=== PATIENT | female | born 1950 | race Caucasian/White ===

== ENCOUNTER → 2017-01-05 | Outpatient (CLI) | payer MEDICARE, OTHER ==
--- NOTE | 2016-12-02 08:40 | MH ---
cc: [facility], [facility] DATE OF ADMISSION: 01/05/2017 ADMISSION DIAGNOSIS Narrow anterior chamber angles with potential angle closure. HISTORY OF PRESENT ILLNESS This 66-year-old white female is coming through [facility] for the purpose of a laser peripheral iridectomy of the left eye. She was found to have narrow anterior chamber angles with potential angle closure on examination and has elected to have the laser peripheral iridectomy beginning with the left eye at this time. PAST MEDICAL HISTORY The patient has a history of hypertension, diabetes, acid reflux, sleep apnea and kidney stones. PAST SURGICAL HISTORY Surgical history includes carpal tunnel, heart stent, lithotripsy and a second heart stent. MEDICATIONS Daily medications include: 1. Hydrochlorothiazide. 2. Amlodipine. 3. Losartan. 4. Carvedilol. 5. Omeprazole. 6. Metformin. 7. Atorvastatin. 8. Triplex. 9. Baby aspirin. 10. Plavix. 11. Multivitamins. 12. Fish oil. 13. Ibuprofen p.r.n. 14. Nitro p.r.n. 15. Bydureon injection weekly. ALLERGIES SHE IS ALLERGIC TO LISINOPRIL. FAMILY HISTORY Positive for grandmothers and mother with cataracts. SOCIAL HISTORY Noncontributory. REVIEW OF SYSTEMS Noncontributory. OCULAR EXAMINATION The patient's visual acuity with correction is 20/20 in the right eye and 20/20 -1 in the left. Visual chavez are full to confrontation testing. Extraocular muscle exam reveals full versions with orthophoria at distance and near. Pupils are 3 mm, equal, round and reactive to light without afferent defect. Anterior segment examination reveals very narrow anterior chamber angles with potential angle closure on gonioscopy. Intraocular pressure is 18 in the right eye and 23 in the left by applanation tonometry. Dilated fundus exam reveals sharp disks with cup-to-disk ratio 0.55 in the right eye and 0.6 in the left. The macula is clear bilaterally. A posterior vitreous detachment is present bilaterally with floaters. Choroidal nevi are present bilaterally. IMPRESSION 1. Narrow anterior chamber angles with potential angle closure. 2. Glaucoma suspect, low risk. 3. Posterior vitreous detachment, both eyes. 4. Choroidal nevi, both eyes. PLAN Laser peripheral iridectomy of the left eye through [facility]. MD AIDEN Garcia /8:04 AM /8:35 AM
[~2017-01-05] MED LIST: AMLO5TAB22 PO; ASPI81TA82 PO; ATOR20TA42 PO; BALANCED SALT SOLN OPHT IRRIG 15 ML BTL ONE; CHOL1CAP PO; CORE25TA PO; COZA50TA PO; EXEN10PE SQ; FISH1000 PO; HYDR-2768 PO; MOTR200T PO; NITR0.4S SL; OMEP20TA PO; PILOCARPINE HCL 2% OPHT SOLN 15 ML BTL ONE; PLAV75TA PO; PROPARACAINE HCL 0.5% OPHT SOLN 15 ML BTL ONE; TAB-TAB PO; prednisoLONE ACETATE 1% OPHT SUSP 5 ML BTL ONE
--- NOTE | 2017-01-05 13:23 | MP ---
cc: [facility] DATE OF SURGERY 01/05/2017 PREOPERATIVE DIAGNOSIS Narrow anterior chamber angle, left eye. POSTOPERATIVE DIAGNOSIS Narrow anterior chamber angle, left eye. OPERATION Laser peripheral iridectomy, left eye. ANESTHESIA Topical COMPLICATIONS None INDICATIONS FOR PROCEDURE See History and Physical previously dictated. PROCEDURE The patient arrived at [facility]. Blood pressure was 137/68, pulse 65, respirations 18. A drop of Alphagan P and 2% Pilocarpine were instilled in the left eye. A drop of Ophthaine was instilled in the left eye and a laser iridectomy lens was placed on the anterior surface of the left cornea. Peripheral iridectomy was carried out utilizing the following procedure: Argon laser was first utilized forming a crater in the iris. 12 exposures of 400 milliwatts were used with a spot size of 200 microns for 0.2 seconds. Then the Argon laser is 58 exposures of 900 milliwatts were used with the spot size of 50 microns 0.1 second exposure. Following this, YAG laser was utilized to complete the iridectomy. 2 exposures of 6.3 millijoules were utilized by the YAG laser to complete the iridectomy. An adequate opening was seen at this time. The iridectomy lens was removed and the eye was irrigated. A drop of Alphagan P was instilled. The patient was given a prescription for Pred Forte to be utilized four times a day, and has an appointment for follow-up on the first postoperative day in my office. The patient left the [facility] in satisfactory condition. MD RAMAKRISHNA Garcia/ANTHONY /11:46 AM /1:24 PM .10
== END ==
LOC: PHSDC 10:02
PROVIDERS: ATTEND Ophthalmology
DX: H40.20X0 Unspecified primary angle-closure glaucoma, stage unspecified (principal); H43.813 Vitreous degeneration, bilateral; H43.393 Other vitreous opacities, bilateral; D31.31 Benign neoplasm of right choroid; D31.32 Benign neoplasm of left choroid; I10 Essential (primary) hypertension; E11.9 Type 2 diabetes mellitus without complications; G47.30 Sleep apnea, unspecified; K21.9 Gastro-esophageal reflux disease without esophagitis; Z79.84 Long term (current) use of oral hypoglycemic drugs; Z95.5 Presence of coronary angioplasty implant and graft; Z87.442 Personal history of urinary calculi

== ENCOUNTER → 2017-03-23 | Outpatient (CLI) | payer MEDICARE, OTHER ==
--- NOTE | 2017-03-19 14:42 | MH ---
cc: [facility] DATE OF ADMISSION 03/23/2017 ADMISSION DIAGNOSIS Narrow anterior chamber angle right eye. HISTORY OF PRESENT ILLNESS This 66-year-old white female is coming through [facility] for the purpose of a laser peripheral iridectomy of the right eye. She was found to have narrow anterior chamber angles with potential angle closure and has undergone a laser peripheral iridectomy in the left eye in December 2016 and done well and is now coming through for the laser peripheral iridectomy on the right eye. PAST MEDICAL HISTORY The patient has a history of: 1. Hypertension 2. Diabetes 3. Acid reflux 4. Sleep apnea 5. Kidney stones PAST SURGICAL HISTORY Includes: 1. Lithotripsy 2. Heart stent 3. The above-mentioned laser peripheral iridectomy in the left eye in December of 2016 MEDICATIONS Daily medications include: 1. Hydrochlorothiazide 2. Amlodipine 3. Losartan 4. Carvedilol 5. Omeprazole 6. Metformin 7. Atorvastatin 8. Triplex DR 9. Baby aspirin 2 10. Plavix 11. Multivitamins 12. Fish oil 13. Ibuprofen p.r.n. 14. Nitro p.r.n. 15. Bydureon injection weekly ALLERGIES She is allergic to LISINOPRIL SOCIAL HISTORY Noncontributory FAMILY HISTORY Positive for a grandmother and mother with cataract. REVIEW OF SYSTEMS Noncontributory PHYSICAL EXAM On ocular exam, the patient's visual acuity with correction is 20/20 in each eye. Visual chavez are full to confrontation testing. Extraocular muscle exam reveals full versions with orthophoria at distance and near. Pupils are 3 mm equal, round, and reactive to light without afferent defect. Anterior segment examination reveals a narrow anterior chamber angle with potential angle closure in the right eye and a laser peripheral iridectomy that is patent in the left eye. Intraocular pressure is 18 in the right eye and 29 in the left. Dilated fundus exam revealed sharp disk with cup-to-disk ratio 0.55 in the right eye and 0.6 in the left. The macula is clear bilaterally. Posterior vitreous detachment is present bilaterally. There are choroidal nevi present in both eyes and vitreous floaters in both eyes. IMPRESSION 1. Narrow anterior chamber angle with potential angle closure right eye. 2. Status post laser peripheral iridectomy left eye for narrow anterior chamber angle. 3. Posterior vitreous detachment both eyes 4. Vitreous floaters both eyes 5. Choroidal nevi both eyes PLAN The plan is laser peripheral iridectomy of the right eye through [facility]. MD RAMAKRISHNA Garcia/ANTHONY /12:09 PM /2:40 PM
--- NOTE | 2017-03-24 12:45 | MP ---
cc: [facility] DATE OF SURGERY: 03/24/2017 PREOPERATIVE DIAGNOSIS: Narrow anterior chamber angle, right eye. POSTOPERATIVE DIAGNOSIS: Narrow anterior chamber angle, right eye. OPERATION: Laser peripheral iridectomy, right eye. ANESTHESIA: Topical. COMPLICATIONS: None. INDICATIONS FOR PROCEDURE: See History and Physical previously dictated. PROCEDURE: The patient arrived at [facility]. Blood pressure was 132/73, pulse 69, respirations 18. A drop of Alphagan P and 2% Pilocarpine were instilled in the right eye. A drop of Ophthaine was instilled in the right eye and a laser iridectomy lens was placed on the anterior surface of the right cornea. Peripheral iridectomy was carried out utilizing the following procedure: Argon laser was first utilized forming a crater in the iris. 12 exposures of 400 milliwatts were used with a spot size of 200 microns for 0.2 seconds. Then 46 exposures of 950 milliwatts were used with the spot size of 50 microns, 0.1 seconds exposure time. Following this, YAG laser was utilized to complete the iridectomy. 7 exposures of 6.4 millijoules were utilized by the YAG laser to complete the iridectomy. An adequate opening was seen at this time. The iridectomy lens was removed and the eye was irrigated. A drop of Alphagan P was instilled. The patient was given a prescription for Pred Forte to be utilized four times a day, and has an appointment for follow-up on the first postoperative day in my office. The patient left the [facility] in satisfactory condition. MD RAMAKRISHNA Garcia/milana /12:32 PM /12:36 PM .10
== END ==
LOC: PHSDC 10:56
PROVIDERS: ATTEND Ophthalmology
DX: H40.031 Anatomical narrow angle, right eye (principal); H43.393 Other vitreous opacities, bilateral; D31.32 Benign neoplasm of left choroid; D31.31 Benign neoplasm of right choroid; H43.813 Vitreous degeneration, bilateral; I10 Essential (primary) hypertension; E11.9 Type 2 diabetes mellitus without complications; G47.30 Sleep apnea, unspecified; K21.9 Gastro-esophageal reflux disease without esophagitis; N20.0 Calculus of kidney; Z79.84 Long term (current) use of oral hypoglycemic drugs

== ENCOUNTER 2017-09-27 00:10 | Inpatient (IN) ==
[2017-09-27] MEDS ORDERED: dilTIAZem Inj 125 MG in Sodium Chlor 0.9% Inj 100 ML IV.CONT PRN (00:24)
[2017-09-27 00:37] LABS: Baso # (Auto) 0.1 th/mm3 (0.0-0.2); Baso % (Auto) 0.8 % (0.0-2.0); Eos # (Auto) 0.1 th/mm3 (0.0-0.4); Eos % (Auto) 1.4 % (0.0-4.0); Hematocrit 43.4 % (35.0-46.0); Lymph # (Auto) 2.3 th/mm3 (1.0-4.8); Lymph % (Auto) 27.4 % (9.0-44.0); Mean Corpuscular HGB Conc 34.5 % (32.0-36.0); Mean Corpuscular Hemoglobin 30.7 pg (27.0-34.0); Mean Corpuscular Volume 89.1 fL (80.0-100.0); Mean Platelet Volume 10.6 fL (7.0-11.0); Mono # (Auto) 0.4 th/mm3 (0.0-0.9); Mono % (Auto) 4.8 % (0.0-8.0); Neut # (Auto) 5.4 th/mm3 (1.8-7.7); Neut % (Auto) 65.6 % (16.0-70.0); Platelet Count 199 th/mm3 (150-450); Red Blood Count 4.88 mil/mm3 (4.00-5.30); Red Cell Distribution Width 13.4 % (11.6-17.2); White Blood Count 8.3 th/mm3 (4.0-11.0)
--- NOTE | 2017-09-27 00:49 | ED ---
HPI General Chief complaint: Arrhythmia / Palpitations Stated complaint: Heart racing,pulse irregular Time Seen by Provider: 09/27/17 00:24 Source: patient Mode of arrival: ambulatory Limitations: no limitations History of Present Illness HPI narrative: Is a 67-year-old woman who presents emergency department complaining that she felt like her heart was beating kind of funny tonight, with palpitations, and irregular heartbeat. States symptoms started just a little bit before she came to the emergency department. Over the past couple days she has felt a little tired, but a headache, nothing too out of the ordinary. No chest pain. She is a little bit of shortness of breath since the symptoms started. She has a history of CAD with stents, she follows a Dr. Damian. She also has diabetes hypertension hyperlipidemia and sleep apnea. She does not really uses CPAP anymore, has not for couple years. She has never had any kind of abnormal heart rhythm or A. fib. She takes all her medications regularly. No other complaints. Related Data Home Medications Medication Instructions Recorded Confirmed amlodipine [Norvasc] 10 mg PO DAILY 09/27/17 09/27/17 aspirin [Aspir-81] 81 mg PO DAILY 09/27/17 09/27/17 atorvastatin [Lipitor] 40 mg PO DAILY 09/27/17 09/27/17 exenatide microspheres [Bydureon] 2 mg SUB-Q Q7D 09/27/17 09/27/17 fenofibric acid (choline) 45 mg PO DAILY 09/27/17 09/27/17 furosemide [Lasix] 20 mg PO DAILY 09/27/17 09/27/17 losartan 50 mg PO DAILY 09/27/17 09/27/17 meloxicam 15 mg PO DAILY 09/27/17 09/27/17 multivit-folic [id number] C 09/27/17 nitroglycerin [Nitrostat] 0.4 mg SUBLINGUAL Q5-15M PRN 09/27/17 09/27/17 omega-3 fatty acids [Fish Oil 2,000 mg PO DAILY 09/27/17 09/27/17 Concentrate] omeprazole 40 mg PO DAILY 09/27/17 09/27/17 Previous Rx's Medication Instructions Recorded apixaban [Eliquis] 5 mg PO BID #60 tab 09/28/17 carvedilol [Coreg] 12.5 mg PO BID #60 tab 09/28/17 diltiazem HCl 120 mg PO DAILY #30 cap 09/28/17 Allergies Allergy/AdvReac Type Severity Reaction Status Date / Time lisinopril Allergy Severe Anaphylaxis Verified 09/27/17 00:13 Review of Systems ROS: all other systems reviewed are negative [facility] Medical History Medical History CAD (coronary artery disease) (Chronic) History of heart artery stent (Chronic) History of high cholesterol (Chronic) History of hypertension (Chronic) Hx of chronic arthritis (Chronic) Hx of type 2 diabetes mellitus (Chronic) ERMELINDA (obstructive sleep apnea) (Chronic) Family history of GERD (Inactive) Family History Family History Other Hypertension Social History Social History Substance History: No History of Abuse Second Hand Smoke Exposure: No Smoking Status: Never smoker How Often Do You Have a Drink Containing Alcohol: Never Recent Travel in [facility] within the Last 8 Weeks: No Recent Out of Country Travel within the Last 8 Weeks: No Exam Narrative Exam Narrative: GENERAL: Well-appearing 67-year-old woman, no acute distress. SKIN: Focused skin assessment warm/dry. HEAD: Atraumatic. Normocephalic. EYES: Pupils equal and round. No scleral icterus. No injection or drainage. ENT: No nasal bleeding or discharge. Mucous membranes pink and moist. NECK: Trachea midline. No JVD. CARDIOVASCULAR: Irregularly irregular. No appreciable murmur. RESPIRATORY: No accessory muscle use. Clear to auscultation. Breath sounds equal bilaterally. GASTROINTESTINAL: Abdomen soft, non-tender, nondistended. Hepatic and splenic margins not palpable. MUSCULOSKELETAL: No obvious deformities. No clubbing. No cyanosis. No edema. NEUROLOGICAL: Awake and alert. No obvious cranial nerve deficits. Motor grossly within normal limits. Normal speech. PSYCHIATRIC: Appropriate mood and affect; insight and judgment normal. Course Initial Documented Vital Signs Temperature 98.2 F 09/27/17 00:15 Pulse Rate 135 H 09/27/17 00:15 Respiratory Rate 22 09/27/17 00:15 Blood Pressure 144/92 H 09/27/17 00:15 Pulse Oximetry 98 09/27/17 00:15 Last Documented Vital Signs Temperature 97.7 F 09/28/17 07:00 Pulse Rate 68 09/28/17 08:00 Respiratory Rate 24 09/28/17 08:00 Blood Pressure 167/77 H 09/28/17 08:00 Pulse Oximetry 98 09/28/17 08:00 Medical Decision Making MDM Narrative Medical decision making narrative: 67-year-old woman with new onset A. fib, symptoms started tonight. No chest pain. Looks well. No history of the same. We will do diltiazem, check labs, no clear precipitant. Likely admission. Medical Screen Exam Complete: Yes Emergency Medical Condition: Yes Lab Data Result diagrams: 09/28/17 04:25 09/28/17 04:25 Lab Results 09/27/17 09/27/17 09/27/17 Range/Units 00:31 00:31 00:31 CBC w Diff Auto diff final WBC 8.3 (4.0-11.0) th/mm3 RBC 4.88 (4.00-5.30) mil/mm3 Hgb 15.0 (11.6-15.3) gm/dL Hct 43.4 (35.0-46.0) % MCV 89.1 (80.0-100.0) fL MCH 30.7 (27.0-34.0) pg MCHC 34.5 (32.0-36.0) % RDW 13.4 (11.6-17.2) % Plt Count 199 (150-450) th/mm3 MPV 10.6 (7.0-11.0) fL Neut % (Auto) 65.6 (16.0-70.0) % Lymph % (Auto) 27.4 (9.0-44.0) % [place] % (Auto) 4.8 (0.0-8.0) % Eos % (Auto) 1.4 (0.0-4.0) % Baso % (Auto) 0.8 (0.0-2.0) % Neut # (Auto) 5.4 (1.8-7.7) th/mm3 Lymph # (Auto) 2.3 (1.0-4.8) th/mm3 [place] # (Auto) 0.4 (0.0-0.9) th/mm3 Eos # (Auto) 0.1 (0.0-0.4) th/mm3 Baso # (Auto) 0.1 (0.0-0.2) th/mm3 WBC Differential . Differential Comment . PT 10.8 (9.8-11.6) sec INR 1.1 Ratio APTT 25.9 (24.3-30.1) sec Sodium 138 (136-145) meq/L Potassium 3.3 L (3.5-5.1) meq/L Chloride 105 (98-107) meq/L Carbon Dioxide 25.0 (21.0-32.0) meq/L Anion Gap 8 (5-15) meq/L BUN 21 H (7-18) mg/dL Creatinine 0.97 (0.50-1.00) mg/dL Estimated GFR 57 L (>89) mL/min POC Glucose (68-110) mg/dl Random Glucose 182 H (74-106) mg/dL Hemoglobin A1c (4.3-6.0) % Calcium 9.1 (8.5-10.1) mg/dL Magnesium (1.5-2.5) mg/dL Total Bilirubin 0.5 (0.2-1.0) mg/dL AST 65 H (15-37) U/L ALT 81 H (10-53) U/L Alkaline Phosphatase 104 (45-117) U/L Troponin I Less than 0.02 L (0.02-0.05) ng/mL Total Protein 7.5 (6.4-8.2) g/dL Albumin 3.7 (3.4-5.0) g/dL Triglycerides (42-150) mg/dL Cholesterol (120-200) mg/dL LDL Cholesterol, Calc (0-99) mg/dL HDL Cholesterol (40.0-60.0) mg/dL Cholesterol/HDL Ratio Ratio TSH (0.358-3.740) uIU/mL 09/27/17 09/27/17 09/28/17 Range/Units 00:31 08:20 04:25 CBC w Diff WBC 6.3 (4.0-11.0) th/mm3 RBC 4.29 (4.00-5.30) mil/mm3 Hgb 13.4 (11.6-15.3) gm/dL Hct 39.5 (35.0-46.0) % MCV 91.9 (80.0-100.0) fL MCH 31.1 (27.0-34.0) pg MCHC 33.9 (32.0-36.0) % RDW 13.2 (11.6-17.2) % Plt Count 167 (150-450) th/mm3 MPV 10.3 (7.0-11.0) fL Neut % (Auto) (16.0-70.0) % Lymph % (Auto) (9.0-44.0) % [place] % (Auto) (0.0-8.0) % Eos % (Auto) (0.0-4.0) % Baso % (Auto) (0.0-2.0) % Neut # (Auto) (1.8-7.7) th/mm3 Lymph # (Auto) (1.0-4.8) th/mm3 [place] # (Auto) (0.0-0.9) th/mm3 Eos # (Auto) (0.0-0.4) th/mm3 Baso # (Auto) (0.0-0.2) th/mm3 WBC Differential Differential Comment PT (9.8-11.6) sec INR Ratio APTT (24.3-30.1) sec Sodium (136-145) meq/L Potassium (3.5-5.1) meq/L Chloride (98-107) meq/L Carbon Dioxide (21.0-32.0) meq/L Anion Gap (5-15) meq/L BUN (7-18) mg/dL Creatinine (0.50-1.00) mg/dL Estimated GFR (>89) mL/min POC Glucose 147 H (68-110) mg/dl Random Glucose (74-106) mg/dL Hemoglobin A1c (4.3-6.0) % Calcium (8.5-10.1) mg/dL Magnesium 1.6 (1.5-2.5) mg/dL Total Bilirubin (0.2-1.0) mg/dL AST (15-37) U/L ALT (10-53) U/L Alkaline Phosphatase (45-117) U/L Troponin I (0.02-0.05) ng/mL Total Protein (6.4-8.2) g/dL Albumin (3.4-5.0) g/dL Triglycerides (42-150) mg/dL Cholesterol (120-200) mg/dL LDL Cholesterol, Calc (0-99) mg/dL HDL Cholesterol (40.0-60.0) mg/dL Cholesterol/HDL Ratio Ratio TSH (0.358-3.740) uIU/mL 09/28/17 09/28/17 09/28/17 Range/Units 04:25 04:25 04:25 CBC w Diff WBC (4.0-11.0) th/mm3 RBC (4.00-5.30) mil/mm3 Hgb (11.6-15.3) gm/dL Hct (35.0-46.0) % MCV (80.0-100.0) fL MCH (27.0-34.0) pg MCHC (32.0-36.0) % RDW (11.6-17.2) % Plt Count (150-450) th/mm3 MPV (7.0-11.0) fL Neut % (Auto) (16.0-70.0) % Lymph % (Auto) (9.0-44.0) % [place] % (Auto) (0.0-8.0) % Eos % (Auto) (0.0-4.0) % Baso % (Auto) (0.0-2.0) % Neut # (Auto) (1.8-7.7) th/mm3 Lymph # (Auto) (1.0-4.8) th/mm3 [place] # (Auto) (0.0-0.9) th/mm3 Eos # (Auto) (0.0-0.4) th/mm3 Baso # (Auto) (0.0-0.2) th/mm3 WBC Differential Differential Comment PT (9.8-11.6) sec INR Ratio APTT (24.3-30.1) sec Sodium 141 (136-145) meq/L Potassium 3.9 (3.5-5.1) meq/L Chloride 107 (98-107) meq/L Carbon Dioxide 26.2 (21.0-32.0) meq/L Anion Gap 8 (5-15) meq/L BUN 14 (7-18) mg/dL Creatinine 0.73 (0.50-1.00) mg/dL Estimated GFR 79 L (>89) mL/min POC Glucose (68-110) mg/dl Random Glucose 142 H (74-106) mg/dL Hemoglobin A1c 7.2 H (4.3-6.0) % Calcium 8.9 (8.5-10.1) mg/dL Magnesium (1.5-2.5) mg/dL Total Bilirubin (0.2-1.0) mg/dL AST (15-37) U/L ALT (10-53) U/L Alkaline Phosphatase (45-117) U/L Troponin I (0.02-0.05) ng/mL Total Protein (6.4-8.2) g/dL Albumin (3.4-5.0) g/dL Triglycerides 248 H (42-150) mg/dL Cholesterol 135 (120-200) mg/dL LDL Cholesterol, Calc 56 (0-99) mg/dL HDL Cholesterol 29.4 L (40.0-60.0) mg/dL Cholesterol/HDL Ratio 4.59 Ratio TSH 1.590 (0.358-3.740) uIU/mL 09/28/17 Range/Units 07:47 CBC w Diff WBC (4.0-11.0) th/mm3 RBC (4.00-5.30) mil/mm3 Hgb (11.6-15.3) gm/dL Hct (35.0-46.0) % MCV (80.0-100.0) fL MCH (27.0-34.0) pg MCHC (32.0-36.0) % RDW (11.6-17.2) % Plt Count (150-450) th/mm3 MPV (7.0-11.0) fL Neut % (Auto) (16.0-70.0) % Lymph % (Auto) (9.0-44.0) % [place] % (Auto) (0.0-8.0) % Eos % (Auto) (0.0-4.0) % Baso % (Auto) (0.0-2.0) % Neut # (Auto) (1.8-7.7) th/mm3 Lymph # (Auto) (1.0-4.8) th/mm3 [place] # (Auto) (0.0-0.9) th/mm3 Eos # (Auto) (0.0-0.4) th/mm3 Baso # (Auto) (0.0-0.2) th/mm3 WBC Differential Differential Comment PT (9.8-11.6) sec INR Ratio APTT (24.3-30.1) sec Sodium (136-145) meq/L Potassium (3.5-5.1) meq/L Chloride (98-107) meq/L Carbon Dioxide (21.0-32.0) meq/L Anion Gap (5-15) meq/L BUN (7-18) mg/dL Creatinine (0.50-1.00) mg/dL Estimated GFR (>89) mL/min POC Glucose 129 H (68-110) mg/dl Random Glucose (74-106) mg/dL Hemoglobin A1c (4.3-6.0) % Calcium (8.5-10.1) mg/dL Magnesium (1.5-2.5) mg/dL Total Bilirubin (0.2-1.0) mg/dL AST (15-37) U/L ALT (10-53) U/L Alkaline Phosphatase (45-117) U/L Troponin I (0.02-0.05) ng/mL Total Protein (6.4-8.2) g/dL Albumin (3.4-5.0) g/dL Triglycerides (42-150) mg/dL Cholesterol (120-200) mg/dL LDL Cholesterol, Calc (0-99) mg/dL HDL Cholesterol (40.0-60.0) mg/dL Cholesterol/HDL Ratio Ratio TSH (0.358-3.740) uIU/mL Imaging Data Radiologist's impression: Chest X-Ray 09/27/17 00:24 CONCLUSION: No acute abnormality seen. ECG Data Attestation: I personally reviewed and interpreted this ECG as follows: Interpretation: A. fib RVR with a rate of 134, slightly leftward axis, maybe a little bit of lateral ST depression, no definite evidence of acute ischemia. Discharge Plan Discharge Disposition Patient Disposition: 01 Discharge Home Discharge Condition Condition: Stable Discharge Order Discharge Orders: Discharge Order (Routine); Ordered 09/28/17 Ordered By: Chris Lofton Discharge Details Anticipated Discharge Date: 09/28/17 Physicians Team ED Provider: Pete Villegas Primary Care Provider: Gutierrez Garcia Attending Provider: Geraldo Andres Other Providers: Andriy Damian ; Jose Bird Status ED Status: Left Department Discharge Information Discharge Date/Time: 09/27/17 03:35
[2017-09-27 00:51] LABS: Activated Partial Thrombo Time 25.9 sec (24.3-30.1); INR 1.1 Ratio; Prothrombin Time 10.8 sec (9.8-11.6)
[2017-09-27 00:52] LABS: Chloride 105 meq/L (98-107); Potassium 3.3 meq/L (3.5-5.1); Sodium 138 meq/L (136-145)
[2017-09-27 00:55] LABS: Calcium 9.1 mg/dL (8.5-10.1)
[2017-09-27 00:56] LABS: Albumin 3.7 g/dL (3.4-5.0); Anion Gap 8 meq/L (5-15); Blood Urea Nitrogen 21 mg/dL (7-18); Glucose,Random 182 mg/dL (74-106)
--- NOTE | 2017-09-27 00:56 | XR ---
EXAM DATE: 09/27/2017 12:53 AM EDT AGE/SEX: 67 years / Female INDICATIONS: Chest pain. CLINICAL DATA: This is the patient's initial encounter. Patient reports that signs and symptoms have been present for 1 day and indicates a pain score of 5/10. MEDICAL/SURGICAL HISTORY: None. None. COMPARISON: No prior exams available for comparison. FINDINGS: A single AP view of the chest demonstrates the lungs to be symmetrically aerated without evidence of mass, infiltrate or effusion. The cardiomediastinal contours are unremarkable. Spurs are seen in the thoracic spine. There is degenerative change at the left glenohumeral joint. CONCLUSION: No acute abnormality seen. Electronically signed by: Gianfranco Corey MD 09/27/2017 12:55 AM EDT
[2017-09-27 00:59] LABS: Alanine Aminotransferase 81 U/L (10-53); Aspartate Aminotransferase 65 U/L (15-37); Glomerular Filtration Rate 57 mL/min (>89)
[2017-09-27 01:01] LABS: Total Protein 7.5 g/dL (6.4-8.2)
[2017-09-27 01:02] LABS: Alkaline Phosphatase 104 U/L (45-117)
[2017-09-27] MEDS: Enoxaparin Inj 120 MG/0.8 ML Syringe SQ SCH ×2 (01:44→09:46)
--- NOTE | 2017-09-27 08:48 | P.HP ---
History of Present Illness Primary Care Physician: Gutierrez Garcia MD History of Present Illness: 67-year-old female with a history of type 2 diabetes, hypertension, dyslipidemia , GERD presented to the ER with new onset atrial fibrillation. Her symptoms began last night after dinner when she felt palpitations in her chest. Prior to that she has been feeling tired and having dyspnea with exertion for the past week. She states that she sees a bee producer, Dr. López, and had a stress test approximately 4 months ago which was within normal limits. She had been complaining of ankle swelling for which she was given Lasix. She denies any chest pain, diaphoresis, lightheadedness. She denies any focal weakness, slurring of speech, visual changes. Inpatient Certification: I certify that the inpatient services were ordered in accordance with Medicare regulations governing the order. This includes certification that hospital inpatient services are reasonable and necessary and in the case of services not specified as inpatient-only under 42 CFR 419.22(n), that they are appropriately provided as inpatient services in accordance to with the 2-midnight benchmark under 43 CFR 412.3(e) Estimated Total Length of Stay (Days): 2 Plans for Post Hospital Care: Home Review of Systems All other systems reviewed negative except as stated in HPI PMFSH - History History Provided By: Patient - Medical / Surgical Hx Neg / Unobtainable Surgical History: No Previous Surgery - Medical History Medical History: Medical History (Last Reviewed 09/27/17 @ 00:48 by Pete Villegas MD) CAD (coronary artery disease) History of heart artery stent History of high cholesterol History of hypertension Hx of chronic arthritis Hx of type 2 diabetes mellitus ERMELINDA (obstructive sleep apnea) Family history of GERD - Family History Family History: Family History (Last Updated 09/27/17 @ 08:43 by Bethel Costello MD) Other Hypertension - Tobacco History Second Hand Smoke Exposure: No Tobacco Use In Past 30 Days: No Smoking Status: Never smoker - Alcohol History How Often Do You Have a Drink Containing Alcohol: Never - Substance Use History Substance History: No History of Abuse - Travel History Recent Travel in the [place] Within the Last 8 Weeks: No Recent Travel Out of the Country Within the Last 8 Weeks: No - Immunization History Tetanus Immunization: Unsure Hx Influenza Vaccine This Season: Yes Medications and Allergies Active Medications: Active Medications Enoxaparin Sodium (Lovenox Inj) 110 mg SQ Q12HR [facility] Last Admin: 09/27/17 01:44 Dose: 110 mg Diltiazem HCl 125 mg/ Sodium (Chloride) 125 mls @ 5 mls/hr IV.CONT TITRATE PRN ; Protocol PRN Reason: Per Protocol Last Admin: 09/27/17 04:00 Dose: 5 mg/hr, 5 mls/hr Sodium Chloride (Ns Flush) 2 ml IV.FLUSH PRN PRN PRN Reason: FLUSH AFTER USING IV ACCESS Sodium Chloride (Ns Flush) 2 ml IV.FLUSH BID [facility] Allergies Allergy/AdvReac Type Severity Reaction Status Date / Time lisinopril Allergy Severe Anaphylaxis Verified 09/27/17 00:13 Home Medications Medication Instructions Recorded Confirmed Type amlodipine [Norvasc] 10 mg PO DAILY 09/27/17 09/27/17 History aspirin [Aspir-81] 81 mg PO DAILY 09/27/17 09/27/17 History atorvastatin [Lipitor] 40 mg PO DAILY 09/27/17 09/27/17 History carvedilol [Coreg] 12.5 mg PO BID 09/27/17 09/27/17 History clopidogrel [Plavix] 75 mg PO DAILY 09/27/17 09/27/17 History exenatide microspheres [Bydureon] 2 mg SUB-Q Q7D 09/27/17 09/27/17 History fenofibric acid (choline) 45 mg PO DAILY 09/27/17 09/27/17 History furosemide [Lasix] 20 mg PO DAILY 09/27/17 09/27/17 History losartan 50 mg PO DAILY 09/27/17 09/27/17 History meloxicam 15 mg PO DAILY 09/27/17 09/27/17 History multivit-folic imst-dfhr-aav C 09/27/17 History nitroglycerin [Nitrostat] 0.4 mg SUBLINGUAL Q5-15M PRN 09/27/17 09/27/17 History omega-3 fatty acids [Fish Oil 2,000 mg PO DAILY 09/27/17 09/27/17 History Concentrate] omeprazole 40 mg PO DAILY 09/27/17 09/27/17 History Exam Vital signs: Vital Signs 09/27/17 00:15 09/27/17 00:16 09/27/17 00:29 Temperature 98.2 F Pulse Rate 135 H 150 H 123 H Respiratory Rate 22 18 Blood Pressure 144/92 H 123/74 Pulse Oximetry 98 98 09/27/17 01:01 09/27/17 02:00 09/27/17 02:47 Temperature Pulse Rate 83 90 91 H Respiratory Rate 18 18 16 Blood Pressure 121/74 125/72 132/78 Pulse Oximetry 99 98 09/27/17 03:55 09/27/17 04:00 09/27/17 04:11 Temperature 97.9 F 97.7 F Pulse Rate 88 92 H Respiratory Rate 22 23 Blood Pressure 134/70 134/70 Pulse Oximetry 95 96 09/27/17 05:00 09/27/17 05:04 09/27/17 05:54 Temperature Pulse Rate 108 H 88 88 Respiratory Rate 34 H 20 Blood Pressure 133/72 133/72 Pulse Oximetry 95 09/27/17 06:00 09/27/17 07:00 Temperature Pulse Rate 78 78 Respiratory Rate 19 16 Blood Pressure Pulse Oximetry Intake & Output 09/26/17 09/27/17 09/27/17 18:59 06:59 18:59 Output Total 200 / 200 Balance -200 / -200 Weight 109.8 kg Output: Urine 200 / 200 Other: Date of Last Bowel Movement 09/27/17 Weight On Admission 109.7 kg Narrative: GENERAL: AAOx3, no acute distress, obese SKIN: Warm and dry, no rashes. HEAD: Atraumatic. Normocephalic. EYES: Pupils equal, round, reactive to light. No scleral icterus. No injection or drainage. ENT: No nasal bleeding or discharge. Moist mucous membranes. Nonerythematous oropharynx. NECK: Trachea midline. No JVD. Thyroid size within normal limits. CARDIOVASCULAR: Irregularly irregular, rate controlled. No murmur, no gallops, no rubs. RESPIRATORY: Clear and equal to auscultation bilaterally. No crackles, no wheezes. No accessory muscle use. GASTROINTESTINAL: Abdomen soft, non-tender, nondistended, normal active bowel sounds. Hepatic and splenic margins not palpable. MUSCULOSKELETAL: Extremities without clubbing or cyanosis. No obvious deformities. No edema. NEUROLOGICAL: Awake and alert. No obvious cranial nerve deficits. Motor grossly within normal limits. No focal deficits. Five out of 5 muscle strength in the arms and legs. Normal speech. PSYCHIATRIC: Appropriate mood and affect; insight and judgment normal. Results - Labs CBC & Chem 7: 09/27/17 00:31 09/27/17 00:31 Labs: Laboratory Results - last 24 hr 09/27/17 09/27/17 09/27/17 00:31 00:31 00:31 CBC w Diff Auto diff final WBC 8.3 RBC 4.88 Hgb 15.0 Hct 43.4 MCV 89.1 MCH 30.7 MCHC 34.5 RDW 13.4 Plt Count 199 MPV 10.6 Neut % (Auto) 65.6 Lymph % (Auto) 27.4 Izard % (Auto) 4.8 Eos % (Auto) 1.4 Baso % (Auto) 0.8 Neut # (Auto) 5.4 Lymph # (Auto) 2.3 Izard # (Auto) 0.4 Eos # (Auto) 0.1 Baso # (Auto) 0.1 WBC Differential . Differential Comment . PT 10.8 INR 1.1 APTT 25.9 Sodium 138 Potassium 3.3 L Chloride 105 Carbon Dioxide 25.0 Anion Gap 8 BUN 21 H Creatinine 0.97 Estimated GFR 57 L POC Glucose Random Glucose 182 H Calcium 9.1 Magnesium Total Bilirubin 0.5 AST 65 H ALT 81 H Alkaline Phosphatase 104 Troponin I Less than 0.02 L Total Protein 7.5 Albumin 3.7 09/27/17 09/27/17 00:31 08:20 CBC w Diff WBC RBC Hgb Hct MCV MCH MCHC RDW Plt Count MPV Neut % (Auto) Lymph % (Auto) [place] % (Auto) Eos % (Auto) Baso % (Auto) Neut # (Auto) Lymph # (Auto) [place] # (Auto) Eos # (Auto) Baso # (Auto) WBC Differential Differential Comment PT INR APTT Sodium Potassium Chloride Carbon Dioxide Anion Gap BUN Creatinine Estimated GFR POC Glucose 147 H Random Glucose Calcium Magnesium 1.6 Total Bilirubin AST ALT Alkaline Phosphatase Troponin I Total Protein Albumin - Imaging Impressions Chest X-Ray 09/27/17 00:24 CONCLUSION: No acute abnormality seen. Caprini VTE Risk Assessment Caprini VTE Risk Assessment: Moderate/High Risk (score >= 2) Caprini Risk Assessment Model: Point Value = 1 Point Value = 2 Point Value = 3 Point Value = 5 Age 41-60 Minor surgery BMI > 25 kg/m2 Swollen legs Varicose veins or History of unexplained or recurrent spontaneous Oral contraceptives or hormone replacement Sepsis (< 1 month) Serious lung disease, including pneumonia (< 1 month) Abnormal pulmonary function Acute myocardial infarction Congestive heart failure (< 1 month) History of inflammatory bowel disease Medical patient at bed rest Age 61-74 Arthroscopic surgery Major open surgery (> 45 min) Laparoscopic surgery (> 45 min) Malignancy Confined to bed (> 72 hours) Immobilizing plaster cast Central venous access Age >= 75 History of VTE Family history of VTE Factor V Leiden Prothrombin [id number] Lupus anticoagulant Anticardiolipin antibodies Elevated serum homocysteine Heparin-induced thrombocytopenia Other congenital or acquired thrombophilia Stroke (< 1 month) Elective arthroplasty Hip, pelvis, or leg fracture Acute spinal cord injury (< 1 month) Prophylaxis Regimen: Total Risk Factor Score Risk Level Prophylaxis Regimen 0-1 Low Early ambulation 2 Moderate Order ONE of the following: *Sequential Compression Device (SCD) *Heparin 5000 units SQ BID 3-4 Higher Order ONE of the following medications: *Heparin 5000 units SQ TID *Enoxaparin/Lovenox 40 mg SQ daily (WT < 150 kg, CrCl > 30 mL/min) *Enoxaparin/Lovenox 30 mg SQ daily (WT < 150 kg, CrCl > 10-29 mL/min) *Enoxaparin/Lovenox 30 mg SQ BID (WT < 150 kg, CrCl > 30 mL/min) AND/OR *Sequential Compression Device (SCD) 5 or more Highest Order ONE of the following medications: *Heparin 5000 units SQ TID (Preferred with Epidurals) *Enoxaparin/Lovenox 40 mg SQ daily (WT < 150 kg, CrCl > 30 mL/min) *Enoxaparin/Lovenox 30 mg SQ daily (WT < 150 kg, CrCl > 10-29 mL/min) *Enoxaparin/Lovenox 30 mg SQ BID (WT < 150 kg, CrCl > 30 mL/min) AND *Sequential Compression Device (SCD) Assessment and Plan - Plan New onset atrial fibrillation Patient denies any chest pain or tightness, EKG shows A. fib, troponins negative Patient remains rate controlled on IV diltiazem, continue IV diltiazem Continue Lovenox Cardiology consult pending Type 2 diabetes Accu-Cheks with sliding scale insulin coverage Diabetic diet Hypertension Patient is currently controlled DVT Prophylaxis Lovenox
--- NOTE | 2017-09-27 15:35 | ECG ---
Date Performed: 09/27/2017 Time Performed: 00:14:51 PTAGE: 67 years EKG: ATRIAL FIBRILLATION WITH RAPID VENTRICULAR RESPONSE LOW QRS VOLTAGE IN PRECORDIAL LEADS POO R INITIAL ANTERIOR FORCES, WHICH MAY BE NORMAL VARIANT MINOR NONSPECIFIC ST WAVE CHANGE Compared to p revious tracing, there is a rhythm change from Sinus rhythm to atrial fibrillation. There are slight ST-T changes that are new. ABNORMAL ECG PREVIOUS TRACING : 09/27/2015 06.38 DOCTOR: Nik Reeves Interpretating Date/Time 09/27/2017 15:34:45
--- NOTE | 2017-09-27 18:59 | MB ---
cc: Jose Bird Mark B MD DATE: 09/27/2017 IMPRESSIONS: 1. New onset atrial fibrillation. The patient is converted to sinus rhythm on a Cardizem drip. 2. Obesity. 3. Hypertension. 4. Diabetes without target organ involvement. 5. Atherosclerotic heart disease with a history of percutaneous coronary intervention with 2 stents, target vessels unknown. No history of myocardial infarction, heart failure or ventricular arrhythmias. The patient is asymptomatic for angina. 6. Reflux esophagitis. 7. Obstructive sleep apnea. 8. Degenerative joint disease. RECOMMENDATIONS: 1. We will change to p.o. Cardizem. 2. Discontinue amlodipine. 3. May increase carvedilol. An echocardiogram is pending. CLINICAL DATA: The patient is a 67-year-old female admitted to the hospital with palpitations. She was found to be in atrial fibrillation with heart rates in the 130-150 range. She has no previous history of atrial fibrillation. She had a stress test done within the past year which was apparently normal. She has a history of atherosclerotic heart disease, PCI and has 2 stents. She has a history of heart murmur, but no history of rheumatic fever, scarlet fever or pericardial heart disease. There is no history of seizure, stroke, TIA, migraine headaches. No history of asthma, bronchitis, emphysema, pneumonia. There is no history of GI bleeding. There is a history of reflux esophagitis. No history of liver, gallbladder, kidney or thyroid disease. She does not smoke or use alcohol. ALLERGIES: SHE HAS ALLERGIES TO CHRISTOPHER INHIBITORS, WHICH CAUSED ANGIOEDEMA. REVIEW OF SYSTEMS: She has had no chest discomfort, shortness of breath, dizzy spells or syncope. She has had palpitations. She has had some mild lower extremity edema and was started on low-dose furosemide recently. She has no history of DVT or pulmonary thromboembolic disease. No history of claudication. PHYSICAL EXAMINATION: GENERAL: At this time, an alert, oriented female sitting up in bed. She is in a sinus rhythm, rate in the 60s. Her blood pressure is 107/53. HEENT: Anicteric sclerae. NECK: Jugular venous pressures are normal. No definite thyromegaly. CHEST: Clear lung chavez. HEART: Regular rate and rhythm, 1/6 systolic ejection murmur. No gallops. ABDOMEN: Soft, nontender. No masses or visceromegaly. EXTREMITIES: Free of cyanosis, clubbing, edema. Peripheral pulses are normal. LABORATORY DATA: A 12-lead electrocardiogram not done. Echocardiogram is pending. Thyroid studies have not been done. Chest x-ray not available. DISCUSSION: A 67-year-old female with a history of atherosclerotic heart disease, hypertension and diabetes. She does tell me that she is under quite a bit of stress as her daughter is going through a divorce and she is involved in childcare. She is asymptomatic. Recommendations are as noted above. DO BRANDI Herbert/scott , 06:02 PM , 06:10 PM
[2017-09-27] MEDS: Carvedilol 6.25 MG Tablet PO SCH (21:10)
[2017-09-28 05:16] LABS: Hematocrit 39.5 % (35.0-46.0); Hemoglobin 13.4 gm/dL (11.6-15.3); Mean Corpuscular HGB Conc 33.9 % (32.0-36.0); Mean Corpuscular Hemoglobin 31.1 pg (27.0-34.0); Mean Corpuscular Volume 91.9 fL (80.0-100.0); Mean Platelet Volume 10.3 fL (7.0-11.0); Platelet Count 167 th/mm3 (150-450); Red Blood Count 4.29 mil/mm3 (4.00-5.30); Red Cell Distribution Width 13.2 % (11.6-17.2); White Blood Count 6.3 th/mm3 (4.0-11.0)
[2017-09-28 05:23] LABS: Potassium 3.9 meq/L (3.5-5.1)
[2017-09-28 05:26] LABS: Calcium 8.9 mg/dL (8.5-10.1)
[2017-09-28 05:27] LABS: Carbon Dioxide 26.2 meq/L (21.0-32.0)
[2017-09-28 05:41] LABS: Thyroid Stimulating Hormone 1.59 uIU/mL (0.358-3.740)
--- NOTE | 2017-09-28 08:01 | P.PNCA ---
Subjective Interval history: Doing well. Asymtomatic. In NSR today. Tolerating meds. Physical Exam Vital signs: Vital Signs 09/27/17 08:00 09/27/17 08:24 09/27/17 09:00 Temperature 97.4 F L Pulse Rate 76 88 98 H Respiratory Rate 20 20 21 Blood Pressure 129/71 Pulse Oximetry 09/27/17 10:00 09/27/17 11:00 09/27/17 12:00 Temperature Pulse Rate 84 76 98 H Respiratory Rate 18 18 23 Blood Pressure Pulse Oximetry 98 09/27/17 13:00 09/27/17 14:00 09/27/17 14:06 Temperature Pulse Rate 86 84 76 Respiratory Rate 26 H 20 18 Blood Pressure 107/53 L Pulse Oximetry 09/27/17 15:00 09/27/17 16:00 09/27/17 17:00 Temperature Pulse Rate 72 76 64 Respiratory Rate 18 18 28 H Blood Pressure Pulse Oximetry 09/27/17 17:06 09/27/17 18:00 09/27/17 19:30 Temperature Pulse Rate 70 64 Respiratory Rate 30 H 26 H Blood Pressure 138/67 Pulse Oximetry 96 09/27/17 20:00 09/27/17 22:00 09/28/17 00:00 Temperature 97.8 F 98.6 F Pulse Rate 60 58 L 60 Respiratory Rate 22 20 18 Blood Pressure 128/62 134/65 140/64 Pulse Oximetry 98 96 94 L 09/28/17 02:00 09/28/17 04:00 09/28/17 04:01 Temperature 100.0 F H Pulse Rate 60 60 58 L Respiratory Rate 19 20 18 Blood Pressure 134/70 132/60 Pulse Oximetry 95 95 09/28/17 06:00 Temperature Pulse Rate 59 L Respiratory Rate 20 Blood Pressure 132/66 Pulse Oximetry 96 Intake & Output 09/27/17 09/28/17 09/28/17 18:59 06:59 18:59 Intake Total 300 / 300 Balance 300 / 300 Weight 108.3 kg Intake: Oral 300 / 300 Other: # Voids 1 Date of Last Bowel Movement 09/27/17 09/27/17 - Constitutional no acute distress - Routine HEENT Exam ENT: Present: mucous membranes moist - Routine Neck Exam Present: supple - Routine Respiratory Exam Present: CTA bilaterally - Routine Cardiovascular Exam Present: RRR, S1, S2 - Routine Extremities Exam Present: pulses intact - Routine Skin Exam Present: intact - Routine Neurological Exam Present: alert, oriented X3 Assessment and Plan - Assessment (1) Paroxysmal atrial fibrillation Code(s): I48.0 - Paroxysmal atrial fibrillation Status: Resolved (2) CAD (coronary artery disease) Code(s): I25.10 - Atherosclerotic heart disease of [place] coronary artery without angina pectoris Status: Acute (3) HTN (hypertension) Code(s): I10 - Essential (primary) hypertension Status: Acute (4) Obese Code(s): E66.9 - Obesity, unspecified Status: Acute - Plan D/C enoxaparin. Continue low dose ASA and cardizem. Resume other home meds but will leave off Plavix. Start Eliquis 5 mg po BID for CVA prophylaxis. Ambulate and increase activity as tolerates. OK to d/c home today. Instructions given and understood. Discussed with patient and staff certified nurse midwife. F/U with me in 1-3 weeks. Thank you.
[2017-09-28] MEDS: Carvedilol 6.25 MG Tablet PO SCH (08:50)
[2017-09-28] MEDS ORDERED: dilTIAZem CD 120 MG Capsule PO SCH (09:00)
[2017-09-28 09:32] VITALS: O2SAT 98
[2017-09-28 09:35] VITALS: BP 167/77; PULSE 68; RESP 24; TEMP 97.7
[2017-09-28 10:27] LABS: Chol/HDL Ratio 4.59 Ratio; HDL Cholesterol 29.4 mg/dL (40.0-60.0)
--- NOTE | 2017-09-28 11:02 | P.PN ---
Subjective Interval history: 67-year-old female who is seen and examined today in follow-up for new onset atrial fibrillation. Patient currently resting well. Heart rate is controlled. Back in sinus rhythm. Cardiology evaluated patient and made recommendations. Patient denies any new symptoms. Plan for discharge home today. Vital signs are stable. Patient remains afebrile. Physical Exam Vital signs: Vital Signs 09/27/17 11:00 09/27/17 12:00 09/27/17 13:00 Temperature Pulse Rate 76 98 H 86 Respiratory Rate 18 23 26 H Blood Pressure Pulse Oximetry 98 09/27/17 14:00 09/27/17 14:06 09/27/17 15:00 Temperature Pulse Rate 84 76 72 Respiratory Rate 20 18 18 Blood Pressure 107/53 L Pulse Oximetry 09/27/17 16:00 09/27/17 17:00 09/27/17 17:06 Temperature Pulse Rate 76 64 70 Respiratory Rate 18 28 H 30 H Blood Pressure 138/67 Pulse Oximetry 09/27/17 18:00 09/27/17 19:30 09/27/17 20:00 Temperature 97.8 F Pulse Rate 64 60 Respiratory Rate 26 H 22 Blood Pressure 128/62 Pulse Oximetry 96 98 09/27/17 22:00 09/28/17 00:00 09/28/17 02:00 Temperature 98.6 F Pulse Rate 58 L 60 60 Respiratory Rate 20 18 19 Blood Pressure 134/65 140/64 134/70 Pulse Oximetry 96 94 L 95 09/28/17 04:00 09/28/17 04:01 09/28/17 06:00 Temperature 100.0 F H Pulse Rate 60 58 L 59 L Respiratory Rate 20 18 20 Blood Pressure 132/60 132/66 Pulse Oximetry 95 96 09/28/17 07:00 09/28/17 08:00 Temperature 97.7 F Pulse Rate 58 L 68 Respiratory Rate 17 24 Blood Pressure 134/70 167/77 H Pulse Oximetry 98 Intake & Output 09/27/17 09/28/17 09/28/17 18:59 06:59 18:59 Intake Total 300 / 300 Balance 300 / 300 Weight 108.3 kg Intake: Oral 300 / 300 Other: # Voids 1 Date of Last Bowel Movement 09/27/17 09/27/17 09/27/17 Narrative: GENERAL: Well-developed, well-nourished, in no acute distress. alert and orientated HEENT: Head is normocephalic without any lesions or masses noted. Facial features are symmetric. Eyes: Extraocular muscles are intact. Conjunctivae were clear. NECK: Supple without any masses. Trachea midline no deviation. No JVD, CARDIAC: Regular rhythm, regular rate. S1/S2 are heard. No murmurs gallops or rubs. LUNGS: Clear to auscultation bilaterally. No wheeze, rhonchi or rales. No use of accessory muscles on inspiration or expiration. ABDOMEN: Soft, nontender. Nondistended. Bowel sounds heard in all 4 quadrants. No organomegaly or masses. Negative rebound, negative guarding EXTREMITIES: No edema, pulses are equal bilaterally. No cyanosis or clubbing NEUROLOGY: Mood and affect appear appropriate. Cranial nerves II through XII grossly intact. Moving all extremities, speech is clear Results - Labs CBC & Chem 7: 09/28/17 04:25 09/28/17 04:25 Laboratory Results - last 24 hr 09/28/17 09/28/17 09/28/17 04:25 04:25 04:25 WBC 6.3 RBC 4.29 Hgb 13.4 Hct 39.5 MCV 91.9 MCH 31.1 MCHC 33.9 RDW 13.2 Plt Count 167 MPV 10.3 Sodium 141 Potassium 3.9 Chloride 107 Carbon Dioxide 26.2 Anion Gap 8 BUN 14 Creatinine 0.73 Estimated GFR 79 L POC Glucose Random Glucose 142 H Calcium 8.9 Triglycerides 248 H Cholesterol 135 LDL Cholesterol, Calc 56 HDL Cholesterol 29.4 L Cholesterol/HDL Ratio 4.59 TSH 1.590 09/28/17 07:47 WBC RBC Hgb Hct MCV MCH MCHC RDW Plt Count MPV Sodium Potassium Chloride Carbon Dioxide Anion Gap BUN Creatinine Estimated GFR POC Glucose 129 H Random Glucose Calcium Triglycerides Cholesterol LDL Cholesterol, Calc HDL Cholesterol Cholesterol/HDL Ratio TSH Assessment and Plan - Plan Atrial fibrillation, new onset, -currently back in sinus rhythm rate controlled -Patient was admitted to ICU on Cardizem IV, which has been discontinued -Head Track Coach increased the patient's dose of Coreg and added Cardizem 120 mg daily -Chads score 3, patient has been started on Eliquis for anticoagulation -Echocardiogram be followed by seed cleaner in outpatient setting -Cardiology consulted and treatment, continuation of low-dose aspirin, Eliquis, Cardizem and resumption of home medications. Recommended discontinuing Plavix. -Cardiology cleared the patient for discharge with outpatient follow-up in 1-3 weeks. Hypertension, hyperlipidemia, coronary artery disease -Home medications were continued -Plavix discontinued by seed cleaner secondary to starting Eliquis Diabetes -Accu-Cheks with sliding scale insulin DVT prevention -Initially patient was on Lovenox, currently on Eliquis Discharge Planning: Discharge home in stable condition Activity: Ad aggie. Diet: Healthy heart diet Medication per medication reconciliation Follow-up with primary medical doctor in 1 week
--- NOTE | 2017-09-28 11:17 | ECHRPT ---
Indication: ATRIAL FIB/FLUTTER CONCLUSIONS Normal left ventricular size. Wall thickness is normal. The left ventricular systolic function is normal with an estimated ejection fraction in the range of 55-60%. Trace mitral valve regurgitation. There is mild tricuspid valve regurgitation. The estimated pulmonary arterial pressure is 40 mmHg. BP: / HR: Rhythm: MEASUREMENTS (Male / Female) Normal Values Technical Quality: 2D ECHO LV Diastolic Diameter PLAX 4.3 cm 4.2 - 5.9 / 3.9 - 5.3 cm LV Systolic Diameter PLAX 3.3 cm IVS Diastolic Thickness 0.7 cm 0.6 - 1.0 / 0.6 - 0.9 cm LVPW Diastolic Thickness 0.7 cm 0.6 - 1.0 / 0.6 - 0.9 cm LV Relative Wall Thickness 0.3 RV Internal Dim ED PLAX 2.3 cm LVOT Diameter 1.8 cm Aortic Root Diameter 2.7 cm LA Systolic Diameter LX 2.9 cm 3.0 - 4.0 / 2.7 - 3.8 cm DOPPLER AV Peak Velocity 151.0 cm/s AV Peak Gradient 9.1 mmHg AV Mean Gradient 5.0 mmHg AV Velocity Time Integral 26.1 cm LVOT Peak Velocity 96.8 cm/s LVOT Peak Gradient 3.7 mmHg LVOT Velocity Time Integral 15.1 cm AV Area Cont Eq vti 1.5 cm AV Area Cont Eq pk 1.6 cm Mitral E Point Velocity 96.5 cm/s LV E' Lateral Velocity 17.0 cm/s Mitral E to LV E' Lateral Ratio 5.7 LV E' Septal Velocity 12.8 cm/s Mitral E to LV E' Septal Ratio 7.5 TR Peak Velocity 274.0 cm/s TR Peak Gradient 30.0 mmHg Right Atrial Pressure 10.0 mmHg Pulmonary Artery Systolic Pressu 40.0 mmHg Right Ventricular Systolic Press 40.0 mmHg PV Peak Velocity 77.8 cm/s PV Peak Gradient 2.4 mmHg FINDINGS LEFT VENTRICLE Normal left ventricular size. Wall thickness is normal. The left ventricular systolic function is normal with an estimated ejection fraction in the range of 55-60%. RIGHT VENTRICLE Normal right ventricular size and systolic function. LEFT ATRIUM The left atrial size is normal. RIGHT ATRIUM The right atrial size is normal. ATRIAL SEPTUM The interatrial septum not well visualized. AORTA The aortic root and proximal ascending aorta are normal in size on limited imaging. MITRAL VALVE Trace mitral valve regurgitation. AORTIC VALVE No aortic valve stenosis or regurgitation. TRICUSPID VALVE There is mild tricuspid valve regurgitation. The estimated pulmonary arterial pressure is 40 mmHg. PULMONARY VALVE The pulmonary valve is not well visualized. VESSELS The inferior vena cava was not well visualized. PERICARDIUM No pericardial effusion. Pete Jonas MD, FACC (Electronically Signed) Final Date:28 September 2017 11:15
[2017-09-28 14:57] LABS: Hemoglobin A1c 7.2 % (4.3-6.0)
== END 2017-09-28 12:45 | disposition home or self-care (01) ==
LOC: PHED 00:10 → PHEDA 01:17 → PHICU 03:29
PROVIDERS: ADMIT Internal Medicine; ATTEND Internal Medicine